=== PATIENT | female | born 1935 | race Caucasian/White ===

== ENCOUNTER 2018-04-22 11:17 | Day surgery (SDC) | payer MEDICARE, OTHER, SELFPAY ==
--- NOTE | 2018-04-22 08:17 | PM.PREOP ---
Pre-operative Note Interval Note Pre-op Check: Yes History & Physical Reviewed by Physician Changes: No
[2018-04-22] MEDS: PROPARACAINE 0.5% OPHTH SOL 2 DROPS EYE-OP (12:09)
[2018-04-22 12:11] VITALS: BP 145/84; PULSE 96; RESP 18; TEMP 36.3; O2SAT 95; BMI 38.0
[2018-04-22] MEDS: CATARACT EYE COMPOUND (10 DROPS/SYRINGE) 3 DROPS EYE-OP (12:19)
[2018-04-22] MEDS: BALANCED SALT IRRIG SOLN NO.2 15 ML IRRIG.SOLN IRR (15:58)
[2018-04-22] MEDS: CARBACHOL 1.5 ML VIAL INJ (15:58)
[2018-04-22] MEDS: CHONDROIDTIN/SOD HYALURONATE 1.05 ML SYRINGE INTRAOCULA (15:58)
[2018-04-22] MEDS: MOXIFLOXACIN OPHTH DROPS 3 ML BOTTLE 2 DROPS INJ (15:59)
[2018-04-22] MEDS: HYALURONATE SODIUM 10 MG/ML SYRINGE INJ (15:59)
[2018-04-22] MEDS: NEOMYCIN/POLY/DEX OPHTH OINT 1 APPLIC EYE-RIGHT (15:59)
[2018-04-22] MEDS: OFLOXACIN 0.3% OPHTH 5 ML 2 DROPS EYE-RIGHT (15:59)
[2018-04-22] MEDS: TRIAMCINOLONE 50 MG/5 ML VIAL INJ (16:00)
[2018-04-22] MEDS: TRYPAN BLUE 0.5 ML SYRINGE INJ (16:00)
[2018-04-22] MEDS: BALANCED SALT IRRIG SOLN NO.2 500 ML, EPINEPHrine 1 MG IRR (16:00)
[2018-04-22] MEDS: PHENYLEPHRINE/LIDOCAINE VIAL (OR) 0.2 ML EYE-OP (16:00)
[2018-04-22] MEDS: LIDOCAINE 2% 4 ML, BUPIVACAINE 0.5% (PF) 4 ML, HYALURONIDASE 150 UNIT INJ (16:01)
--- NOTE | 2018-04-22 16:28 | PM.OP.1 ---
Operative Date/Time/Diagnoses Date of procedure: 04/22/18 Time of procedure: 15:30 Post-op diagnosis: other Procedure & Clinicians Procedure: Date of service:April 22, Preoperative diagnoses: 1. Right mature cataract. Postoperative diagnoses: 1. Cataract mature cataract surgery right eye with need for capsular dye, no IOL implanted due to zonular weakness. 2, Previous retinal detachment repair with posterior vitrectomy and retinal peel. 3. Obesity 4. h/o TIA 5. Emphysema Procedure: Phacoemulsification with posterior chamber intraocular lens implant Surgeon: Gretchen Oro MD Complications: Zonular weakness. Procedure stopped prior to full less removal. no vitreous loss. Specimen: None Implant:none Blood loss: None Anesthesia: Retrobulbar with monitored standby Anesthesiologist: Santosh Peacock M.D. Description of procedure: Patient is a female year old with decreased vision due to cataract which is affecting activities of daily living. She wants surgery to improve vision. She was taken to the operating room and given IV sedation and a laryngeal mask airway. A retrobulbar block insert consisting of 6 cc of 2% xylocaine without epinephrine mixed half and half with 0.5% Marcaine with 1 cc of hyaluronidase added is placed between the medial and lateral 1/3 of the inferior orbital rim. he eye is manually massaged for 30 sec, prepped using Betadine solution, and draped in the usual sterile fashion. Temporal approach was made, a 1 mm side-port incision was made at the 7:30 position. Phenylephrine 1.5% mixed with 1% xylocaine 0.2 cc was placed into the anterior chamber. A an air bubble was placed and the Visudyne dye was placed into the anterior chamber. Viscoat followed by Parker was then placed. A 2.6 mm clear incision with a 2.6 mm blade was placed at the 170 degree meridian. A 360 degree capsulorrhexis style capsulotomy was then performed with a cystitome needle on a Healon. Hydrodelineation and hydrodissection were performed. The phacoemulsification unit is introduced, and sculpting notice used to groove the central lens. On intended cracking it was noted that the zonules were weak for probably 4 clock hours superiorly and therefore procedure was stopped. Dr. Sha moy consulted about removal with anterior capsular support. The viscoelastic was removed. A safety suture of 10 0 nylon was placed through the wound and tied. Vigamox 0.1 cc was placed into the anterior chamber of ofloxin was placed and Maxitrol ointment was placed. The eye was patched and shielded. Instructions were given to the patient on further surgery planned for tomorrow in [place]. She returned recovery room in stable condition. Dictated by: Gretchen Oro MD Copy to: [facility] Copy to Wei Hammond at [facility].r Same procedure as scheduled: No
[2018-04-22 16:32] VITALS: BP 135/77; PULSE 94; RESP 14; TEMP 36.2; O2SAT 98
[2018-04-22 16:36] VITALS: BP 158/84; PULSE 90; RESP 18; O2SAT 97
[2018-04-22 16:41] VITALS: BP 165/84; PULSE 90; RESP 12; O2SAT 95
[2018-04-22 16:55] VITALS: BP 151/85; PULSE 88; RESP 12; TEMP 36.6; O2SAT 94
--- NOTE | 2018-04-22 18:13 | SUR.PHASEII ---
Long delay in Phase 2 due to needing to arrange post op apopointment with Dr Hammond in [place]. Information was verified and directions given to the patient. Clinically she was ready to discharge at 1700.
== END 2018-04-22 17:53 | disposition home or self-care (01) ==
LOC: OR 11:21
PROVIDERS: Family Provider Family Medicine; PCP Family Medicine; Visit Provider Ophthalmology
DX: H26.8 Other specified cataract (principal); E66.9 Obesity, unspecified; Z86.73 Personal history of transient ischemic attack (TIA), and cerebral infarction without residual deficits; J43.9 Emphysema, unspecified; Z53.09 Procedure and treatment not carried out because of other contraindication
CPT/HCPCS: J0171; J2704; J3301; J3470

== ENCOUNTER → 2021-09-28 09:41 | Outpatient (CLI) | payer MEDICARE, OTHER, SELFPAY ==
[2021-09-28 12:10] LABS: COVID-19 CEPHEID PCR (VTM/NP) Negative (Negative)
== END ==
PROVIDERS: Family Provider Family Medicine; PCP Family Medicine; Referring Provider Internal Medicine; Visit Provider Internal Medicine
DX: Z20.822 Contact with and (suspected) exposure to COVID-19 (principal)
CPT/HCPCS: C9803; U0003; U0005

== ENCOUNTER → 2021-09-28 09:45 | Outpatient (CLI) | payer MEDICARE, OTHER, SELFPAY ==
--- NOTE | 2021-10-03 11:39 | PM.PFT.1 ---
Pulmonary Function Test Referral & Results Date Patient Seen: 09/28/21 Requesting provider: Olga Lidia Mariscal Results: The spirometry demonstrates an FVC of 1.10 L which is 49% of predicted. The FEV1 was measured at 0.83 L which is 51% of predicted. The FEV1/FVC ratio was 75 which is 103% of predicted. Following the administration of bronchodilator there was no change. Lung volumes show an SVC of 1.28 L which is 52% of predicted. The diffusing capacity was measured at 11.25 which is 50% of predicted. No hemoglobin value was provided, so no correction for potential anemia could be made, if appropriate. The maximum voluntary ventilation was reduced Interpretation: Study demonstrates mild obstructive lung disease based on reduction FEV1 which is less than 1 L. However FEV1/FVC ratio is preserved. There is also a significant reduction in lung volumes suggesting moderate restrictive lung disease based on reduction SVC however I do not believe this explains the reduction in FEV1 above. There is also moderate reduction diffusing capacity suggesting significant disease at the capillary alveolar level Clinical correlation suggested
== END ==
PROVIDERS: Family Provider Family Medicine; PCP Family Medicine; Referring Provider Internal Medicine Pulmonary Disease; Visit Provider Internal Medicine Pulmonary Disease
DX: J44.9 Chronic obstructive pulmonary disease, unspecified (principal); Z87.891 Personal history of nicotine dependence; Z20.822 Contact with and (suspected) exposure to COVID-19; J98.8 Other specified respiratory disorders
CPT/HCPCS: 94060; 94726; 94729; C9803; U0003; U0005